=== PATIENT | male | born 1940 | race Caucasian/White ===

== ENCOUNTER 2016-02-22 09:55 | Outpatient (RCR) | payer MEDICARE ==
[~2016-02-22 09:55] MED LIST: ASP81CT PO; FISH OIL 1,2001 EAC1 PO; HYDR-3583 PO; HYDR500C PO; MULT1TAB63 PO
[2016-02-22 10:09] LABS: BASOPHILS % (AUTO) 0 % (0-10); EOSINOPHILS # (AUTO) 0.1 10^3/uL (0.0-0.3); EOSINOPHILS % (AUTO) 1 % (0-10); LYMPHOCYTES # (AUTO) 0.7 X 10^3 (1.0-4.0); LYMPHOCYTES % (AUTO) 10 % (12-44); MEAN CORPUSCULAR HEMOGLOBIN 41 PG (25-34); MEAN CORPUSCULAR HGB CONC 34 G/DL (32-36); MEAN CORPUSCULAR VOLUME 118 FL (80-99); MEAN PLATELET VOLUME 8.8 FL (7.4-10.4); MONOCYTES # (AUTO) 0.5 X 10^3 (0.0-1.0); MONOCYTES % (AUTO) 8 % (0-12); NEUTROPHILS # (AUTO) 5.4 X 10^3 (1.8-7.8); NEUTROPHILS % (AUTO) 81 % (42-75); PLATELET COUNT 322 10^3/uL (130-400); RED BLOOD COUNT 3.37 10^6/uL (4.35-5.85); RED CELL DISTRIBUTION WIDTH 12.8 % (10.0-14.5); WHITE BLOOD COUNT 6.6 10^3/uL (4.3-11.0)
[2016-02-22 10:40] LABS: ALANINE AMINOTRANSFERASE 16 U/L (0-55); ALBUMIN 3.7 G/DL (3.2-4.5); ANION GAP 8 MMOL/L (5-14); ASPARTATE AMINO TRANSFERASE 18 U/L (5-34); BILIRUBIN,TOTAL 0.7 MG/DL (0.1-1.0); BLOOD UREA NITROGEN 15 MG/DL (7-18); BUN/CREATININE RATIO 13; CALCIUM 8.8 MG/DL (8.5-10.1); CARBON DIOXIDE 24 MMOL/L (21-32); CHLORIDE 110 MMOL/L (98-107); CREATININE SERUM 1.14 MG/DL (0.60-1.30); GFR ESTIMATED > 60; GLUCOSE 104 MG/DL (70-105); LACTATE DEHYDROGENASE 224 U/L (125-220); POTASSIUM 4.3 MMOL/L (3.6-5.0); SODIUM 142 MMOL/L (135-145); TOTAL PROTEIN 6.6 G/DL (6.4-8.2)
[2016-05-04] MEDS ORDERED: METO-270 PO (06:42)
[2016-05-04] MEDS ORDERED: HYDR500C2 PO (10:45)
[2016-05-04] MEDS ORDERED: OMEG-9 PO (10:45)
== END 2016-05-22 | disposition home or self-care (01) ==
LOC: ONC 09:55
PROVIDERS: ATTEND Internal Medicine Hematology & Oncology
DX: D47.3 Essential (hemorrhagic) thrombocythemia (principal); I12.9 Hypertensive chronic kidney disease with stage 1 through stage 4 chronic kidney disease, or unspecified chronic kidney disease; N18.3 Chronic kidney disease, stage 3 (moderate); Z85.46 Personal history of malignant neoplasm of prostate; Z79.899 Other long term (current) drug therapy
CPT/HCPCS: 36415; 80053; 83615; 85025; 99213

== ENCOUNTER 2016-05-04 05:57 | Inpatient (IN) | payer MEDICARE ==
[~2016-05-04] VITALS: Ht 172.7 cm; Wt 70.3 kg
[2016-05-04] VITALS (7 sets, daily range): BP systolic 124–148; BP diastolic 67–79
[2016-05-04] MEDS ORDERED: ONDANSETRON 4 MG/2 ML (SDV) Z0FRAN ONE (06:06)
--- OUTSIDE RECORDS SUMMARY | 2016-05-04 06:06 | XMS REPORT | Continuity of Care Document ---
Author Author [facility] Address Unknown Phone Unavailable Allergies Active Description Code Type Severity Reaction Onset Reported/Identified Relationship to Patient Clinical Status Yes No Known Drug Allergies [id number] Drug Allergy Unknown N/ A 10/26/2009 Medications Problems Date Dx Coded Attending Type Code Diagnosis Diagnosed By 03/30/2014 ARACELIS BRUNER Ot 238.71 09/23/2014 SHERRELL HEADLEY CLERICAL TRANSCRIBER Ot 238.71 09/23/2014 SHERRELL HEADLEY CLERICAL TRANSCRIBER Ot 585.3 09/23/2014 SHERRELL HEADLEY CLERICAL TRANSCRIBER Ot V58.69 10/29/2014 OMER VELA, CY [place] Ot 780.2 SYNCOPE AND COLLAPSE 03/22/2015 SHERRELL HEADLEY CLERICAL TRANSCRIBER Ot D47.3 03/22/2015 SHERRELL HEADLEY CLERICAL TRANSCRIBER Ot N18.3 03/22/2015 SHERRELL HEADLEY CLERICAL TRANSCRIBER Ot Z79.899 08/30/2015 Ot 238.71 ESSENTIAL THROMBOCYTHEMIA 08/30/2015 Ot 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 08/30/2015 Ot V58.66 LONG-TERM (CURRENT) USE OF ASPIRIN 08/30/2015 Ot V58.69 OTH MED,LT,CURRENT USE 08/30/2015 Ot 238.71 ESSENTIAL THROMBOCYTHEMIA 08/30/2015 Ot 238.71 ESSENTIAL THROMBOCYTHEMIA 08/30/2015 Ot 401.9 HYPERTENSION NOS 08/30/2015 Ot 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 08/30/2015 Ot V58.66 LONG-TERM (CURRENT) USE OF ASPIRIN 08/30/2015 Ot V58.69 OTH MED,LT,CURRENT USE 08/30/2015 Ot 238.71 ESSENTIAL THROMBOCYTHEMIA 08/30/2015 Ot 401.9 HYPERTENSION NOS 08/30/2015 Ot 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 08/30/2015 Ot V58.66 LONG-TERM (CURRENT) USE OF ASPIRIN 08/30/2015 Ot V58.69 OTH MED,LT,CURRENT USE 08/30/2015 Ot 238.71 ESSENTIAL THROMBOCYTHEMIA 08/30/2015 Ot 401.9 HYPERTENSION NOS 08/30/2015 Ot V58.66 LONG-TERM (CURRENT) USE OF ASPIRIN 08/30/2015 Ot V58.69 OTH MED,LT,CURRENT USE 08/30/2015 Ot 238.71 ESSENTIAL THROMBOCYTHEMIA 08/30/2015 Ot 401.9 HYPERTENSION NOS 08/30/2015 Ot V58.66 LONG-TERM (CURRENT) USE OF ASPIRIN 08/30/2015 Ot V58.69 OTH MED,LT,CURRENT USE 08/30/2015 ZOHREH BOBAN N Ot 238.71 ESSENTIAL THROMBOCYTHEMIA 08/30/2015 ZOHREH, BOBAN N Ot 238.71 ESSENTIAL THROMBOCYTHEMIA 08/30/2015 ZOHREH BOBAN N Ot 401.9 HYPERTENSION NOS 08/30/2015 ZOHREH BOBAN N Ot V58.66 LONG-TERM (CURRENT) USE OF ASPIRIN 08/30/2015 JIMMY BRUNERAN N Ot V58.69 OTH MED,LT,CURRENT USE 08/30/2015 SHERRELL HEADLEY CLERICAL TRANSCRIBER Ot 238.71 ESSENTIAL THROMBOCYTHEMIA 08/30/2015 SHERRELL HEADLEY S CLERICAL TRANSCRIBER Ot 401.9 HYPERTENSION NOS 08/30/2015 SHERRELL HEADLEY CLERICAL TRANSCRIBER Ot V58.66 LONG-TERM (CURRENT) USE OF ASPIRIN 08/30/2015 SHERRELL HEADLEY CLERICAL TRANSCRIBER Ot V58.69 OTH MED,LT,CURRENT USE 08/30/2015 ZOHREH BOBAN N Ot 238.71 ESSENTIAL THROMBOCYTHEMIA 08/30/2015 ZOHREH BOBAN N Ot 401.9 HYPERTENSION NOS 08/30/2015 ZOHREH BOBAN N Ot V58.66 LONG-TERM (CURRENT) USE OF ASPIRIN 08/30/2015 ZOHREH BOBAN N Ot V58.69 OTH MED,LT,CURRENT USE 08/30/2015 ZOHREH BOBAN N Ot 238.71 ESSENTIAL THROMBOCYTHEMIA 08/30/2015 SHERRELL HEADLEY CLERICAL TRANSCRIBER Ot 238.71 ESSENTIAL THROMBOCYTHEMIA 08/30/2015 ZOHREH BOBAN N Ot 238.71 ESSENTIAL THROMBOCYTHEMIA 08/30/2015 ZOHREH BOBAN N Ot 238.71 ESSENTIAL THROMBOCYTHEMIA 08/30/2015 SHERRELL HEADLEY S CLERICAL TRANSCRIBER Ot 238.71 ESSENTIAL THROMBOCYTHEMIA 08/30/2015 SHERRELL HEADLEY CLERICAL TRANSCRIBER Ot 585.3 CHRONIC KIDNEY DISEASE, STAGE III ( MODER 08/30/2015 SHERRELL HEADLEY CLERICAL TRANSCRIBER Ot V58.69 OTH MED,LT,CURRENT USE 08/30/2015 SHERRELL HEADLEY CLERICAL TRANSCRIBER Ot D47.3 ESSENTIAL (HEMORRHAGIC) THROMBOCYTHEMIA 08/30/2015 SHERRELL HEADLEY CLERICAL TRANSCRIBER Ot N18.3 CHRONIC KIDNEY DISEASE, STAGE 3 ( MODERAT 08/30/2015 SHERRELL HEADLEY CLERICAL TRANSCRIBER Ot Z79.899 OTHER PHP ENGINEER (CURRENT) DRUG THERAPY 08/31/2015 ZOHREH, BOBAN N Ot D47.3 ESSENTIAL (HEMORRHAGIC) THROMBOCYTHEMIA 08/31/2015 ZOHREH, BOBAN N Ot N18.3 CHRONIC KIDNEY DISEASE, STAGE 3 (MODERAT 08/31/2015 ZOHREH, BOBAN N Ot Z79.899 OTHER HALF-WAY (CURRENT) DRUG THERAPY 09/30/2015 ZOHREH, BOBAN N Ot D47.3 ESSENTIAL (HEMORRHAGIC) THROMBOCYTHEMIA 09/30/2015 ZOHREH, BOBAN N Ot N18.3 CHRONIC KIDNEY DISEASE, STAGE 3 (MODERAT 09/30/2015 ZOHREH, BOBAN N Ot Z79.899 OTHER HALF-WAY (CURRENT) DRUG THERAPY 04/11/2016 ZOHREH, BOBAN N Ot D47.3 ESSENTIAL (HEMORRHAGIC) THROMBOCYTHEMIA 04/11/2016 ZOHREH, BOBAN N Ot I12.9 HYPERTENSIVE CHRONIC KIDNEY DISEASE W ST 04/11/2016 ZOHREH, BOBAN N Ot N18.3 CHRONIC KIDNEY DISEASE, STAGE 3 (MODERAT 04/11/2016 ZOHREH, BOBAN N Ot Z79.899 OTHER HALF-WAY (CURRENT) DRUG THERAPY 04/11/2016 ZOHREH, BOBAN N Ot Z85.46 PERSONAL HISTORY OF MALIGNANT NEOPLASM O 04/24/2016 ZOHREH, BOBAN N Ot D47.3 ESSENTIAL (HEMORRHAGIC) THROMBOCYTHEMIA 04/24/2016 ZOHREH, BOBAN N Ot I12.9 HYPERTENSIVE CHRONIC KIDNEY DISEASE W ST 04/24/2016 ZOHREH, BOBAN N Ot N18.3 CHRONIC KIDNEY DISEASE, STAGE 3 (MODERAT 04/24/2016 ZOHREH, BOBAN N Ot Z79.899 OTHER HALF-WAY (CURRENT) DRUG THERAPY 04/24/2016 ZOHREH, BOBAN N Ot Z85.46 PERSONAL HISTORY OF MALIGNANT NEOPLASM O Procedures Results Encounters ACCT No. Visit Date/Time Discharge Status Pt. Type Provider Facility Loc./Unit Complaint [id number] 12/04/2013 12:48:35 12/04/2013 23: 59:59 [facility] Outpatient Jerrod Fermin [id number] 11/13/2013 15:32:28 11/13/2013 23: 59:59 [facility] Outpatient Jerrod Fermin
[2016-05-04] MEDS ORDERED: NS IV 1000 ML 1,000 ML IV STA (06:08)
[2016-05-04] MEDS ORDERED: ONDANSETRON 4 MG/2 ML (SDV) Z0FRAN IVP ONE ×2 (06:15→06:30)
[2016-05-04 06:18] LABS: BASOPHILS % (AUTO) 1 % (0-10); EOSINOPHILS # (AUTO) 0.1 10^3/uL (0.0-0.3); EOSINOPHILS % (AUTO) 1 % (0-10); LYMPHOCYTES # (AUTO) 2.2 X 10^3 (1.0-4.0); LYMPHOCYTES % (AUTO) 28 % (12-44); MEAN CORPUSCULAR HEMOGLOBIN 42 PG (25-34); MEAN CORPUSCULAR HGB CONC 36 G/DL (32-36); MEAN CORPUSCULAR VOLUME 118 FL (80-99); MEAN PLATELET VOLUME 9.6 FL (7.4-10.4); MONOCYTES # (AUTO) 0.8 X 10^3 (0.0-1.0); MONOCYTES % (AUTO) 11 % (0-12); NEUTROPHILS # (AUTO) 4.9 X 10^3 (1.8-7.8); NEUTROPHILS % (AUTO) 61 % (42-75); PLATELET COUNT 318 10^3/uL (130-400); RED BLOOD COUNT 3.29 10^6/uL (4.35-5.85); RED CELL DISTRIBUTION WIDTH 12.9 % (10.0-14.5)
--- NOTE | 2016-05-04 06:19 | ED CPR ---
HPI-CPR General Stated Complaint: POST CODE Source of Information: Patient, Caregiver, Family Exam Limitations: Physical Impairments (LINETTE ARTIS MD) History of Present Illness Time Seen by Provider: 05:45 Initial Comments Called emergently to the fourth floor room 415 for cardiac arrest. On arrival, found family member of patient on floor with resuscitation in progress. Apparently the patient went unresponsive and had no pulse and CPR was initiated. Patient was guided to the ground and did not hit his head. Apparently after on round of CPR, patient was noted to have a pulse. He was bradycardic on my arrival but was answering questions weakly. Patient's states that he has had history of passing out previously. He has some blood disorder that is followed by oncology. Patient denies pain. Patient is pale and diaphoretic. Initial heart rate noted by me was in the 30s and declining. This spontaneously improved to the 40s and then 50s. Patient was on high flow O2 and IV was established. Patient transported to ER [facility] and then transported to the ER with me at bedside. Patient is connected to the monitoring manager. We did have a 3-4 minute time period that the patient was paced electronically externally. On arrival to the ER, patient is more responsive with better color and improving blood pressure. Family member at bedside. Initial Complaints: Collapsed Witnessed Arrest: Yes Bystander CPR: Yes Down-Time Before ACLS: 0 Paramedics Initial Findings: No Pulse Pre Hospital Treatment: CPR/Thumper, Oxygen (LINETTE ARTIS MD) Allergies and Home Medications Allergies Coded Allergies: No Known Drug Allergies (Unverified , 10/26/09) Home Medications Aspirin 81 Mg Tablet 81 MG PO DAILY (Reported) Hydroxyurea 500 Mg Capsule 500 MG PO SuTuWeThSa (Reported) Hydroxyurea 500 Mg Capsule 500 MG PO DAILY PRN PRN MOFR (Reported) Metoprolol Succinate 25 Mg Tab.er.24h 25 MG PO DAILY (Reported) Multivitamins 1 Ea Tablet 1 TAB PO DAILY (Reported) [place]-3/Dha/Epa/Fish Oil 1 Each Capsule.dr 1,400 MG PO DAILY (Reported) Review of Systems Constitutional: see HPI chills Respiratory: See HPI Cardiovascular: See HPI Gastrointestinal: NauseaDenies Vomiting Skin: see HPI Psychiatric/Neurological: Weakness Other Comments Unable to complete review of systems due to patient's condition (LINETTE ARTIS MD) Past Byqyqwc-Wcdalx-Lomsyt Hx Patient Social History Alcohol Use: Denies Use Recreational Drug Use: No Smoking Status: Unknown if Ever Smoked Recent Foreign Travel: No Contact w/Someone Who Travel: No (LINETTE ARTIS MD) Surgeries HX Surgeries: Yes (prostatectomy) (LINETTE ARTIS MD) Respiratory Hx Respiratory Disorders: No (LINETTE ARTIS MD) Cardiovascular Hx Cardiac Disorders: No (LINETTE ARTIS MD) Neurological Hx Neurological Disorders: No (LINETTE ARTIS MD) Reproductive System Hx Reproductive Disorders: No (LINETTE ARTIS MD) Genitourinary Hx Genitourinary Disorders: Yes (LINETTE ARTIS MD) Gastrointestinal Hx Gastrointestinal Disorders: No (LINETTE ARTIS MD) Musculoskeletal Hx Musculoskeletal Disorders: No (LINETTE ARTIS MD) Endocrine Hx Endocrine Disorders: No (LINETTE ARTIS MD) HEENT HX ENT Disorders: No (LINETTE ARTIS MD) Psychosocial Hx Psychiatric Problems: No (LINETTE ARTIS MD) Blood Transfusions Hx Blood Disorders: Yes (THROMBOCYTHEMIA) (LINETTE ARTIS MD) Reviewed Nursing Assessment Reviewed/Agree w Nursing PMH: Yes (LINETTE ARTIS MD) Family Medical History Significant Family History: No Pertinent Family Hx (LINETTE ARTIS MD) Physical Exam Vital Signs Vital Sign - Last 12Hours (BEVERLEY SORIA MD) Vital Signs Capillary Refill : (LINETTE ARTIS MD) General Appearance: Moderate Distress Thin HEENT: PERRL/EOMI Pharynx Normal Neck: Full Range of Motion Supple Respiratory: Lungs Clear Normal Breath Sounds Cardiovascular: No Murmur Bradycardia Gastrointestinal: Non Tender Soft Extremity: Non Tender No Calf Tenderness Neurologic/Psychiatric: Depressed Affect Other (global weakness) Skin: Cool Pallor (LINETTE ARTIS MD) Focused Exam Lactic Acid Level Laboratory Tests Test 05/04/16 06:04 05/04/16 06:10 Alanine Aminotransferase (ALT/SGPT) 16U/L (0-55) Albumin 3.7G/DL (3.2-4.5) Alkaline Phosphatase 60U/L (40-136) Amylase Level 82U/L (25-125) Anion Gap 10MMOL/L (5-14) Aspartate Amino Transf (AST/SGOT) 20U/L (5-34) BUN/Creatinine Ratio 15 Blood Urea Nitrogen 20MG/DL (7-18) H Calcium Level 8.3MG/DL (8.5-10.1) L Carbon Dioxide Level 20MMOL/L (21-32) L Chloride Level 109MMOL/L (98-107) H Creatinine 1.37MG/DL (0.60-1.30) H Estimat Glomerular Filtration Rate 50 Glucose Level 134MG/DL (70-105) H Lactic Acid Level 1.45MMOL/L (0.50-2.00) Lipase 17U/L (8-78) Magnesium Level 2.2MG/DL (1.8-2.4) Potassium Level 3.4MMOL/L (3.6-5.0) L Sodium Level 139MMOL/L (135-145) Total Bilirubin 1.4MG/DL (0.1-1.0) H Total Protein 6.0G/DL (6.4-8.2) L Troponin I < 0.30NG/ML (<0.30) Glucometer 88MG/DL (70-110) (BEVERLEY SORIA MD) Progress/Results/Core Measures Results/Orders Lab Results Laboratory Tests Test 05/04/16 06:04 05/04/16 06:10 05/04/16 06:16 05/04/16 07:00 Range/Units Activated Partial Thromboplast Time 27 24-35 SEC Alanine Aminotransferase (ALT/SGPT) 16 0-55 U/L Albumin 3.7 3.2-4.5 G/DL Alkaline Phosphatase 60 40-136 U/L Amylase Level 82 25-125 U/L Anion Gap 10 5-14 MMOL/L Aspartate Amino Transf (AST/SGOT) 20 5-34 U/L BUN/Creatinine Ratio 15 Basophils # (Auto) 0.0 0.0-0.1 10^3/uL Basophils (%) (Auto) 1 0-10 % Blood Urea Nitrogen 20 H 7-18 MG/DL Calcium Level 8.3 L 8.5-10.1 MG/DL Carbon Dioxide Level 20 L 21-32 MMOL/L Chloride Level 109 H 98-107 MMOL/L Creatinine 1.37 H 0.60-1.30 MG/DL Eosinophils # (Auto) 0.1 0.0-0.3 10^3/uL Eosinophils (%) (Auto) 1 0-10 % Estimat Glomerular Filtration Rate 50 Glucose Level 134 H 70-105 MG/DL Hematocrit 39 L 40-54 % Hemoglobin 13.8 13.3-17.7 G/DL INR Comment 1.1 0.8-1.4 Lactic Acid Level 1.45 0.50-2.00 MMOL/L Lipase 17 8-78 U/L Lymphocytes # (Auto) 2.2 1.0-4.0 X 10^3 Lymphocytes (%) (Auto) 28 12-44 % Magnesium Level 2.2 1.8-2.4 MG/DL Mean Corpuscular Hemoglobin 42 H 25-34 PG Mean Corpuscular Hemoglobin Concent 36 32-36 G/DL Mean Corpuscular Volume 118 H 80-99 FL Mean Platelet Volume 9.6 7.4-10.4 FL Monocytes # (Auto) 0.8 0.0-1.0 X 10^3 Monocytes (%) (Auto) 11 0-12 % Neutrophils # (Auto) 4.9 1.8-7.8 X 10^3 Neutrophils (%) (Auto) 61 42-75 % Platelet Count 318 130-400 10^3/uL Potassium Level 3.4 L 3.6-5.0 MMOL/L Prothrombin Time 14.3 12.2-14.7 SEC Red Blood Count 3.29 L 4.35-5.85 10^6/uL Red Cell Distribution Width 12.9 10.0-14.5 % Sodium Level 139 135-145 MMOL/L Total Bilirubin 1.4 H 0.1-1.0 MG/DL Total Protein 6.0 L 6.4-8.2 G/DL Troponin I < 0.30 <0.30 NG/ML White Blood Count 8.0 4.3-11.0 10^3/uL Glucometer 88 70-110 MG/DL Tan Test YES-POS POSITIVE Arterial Blood Base Excess 1.7 -2.9 L -2.5-2.5 MMOL/L Arterial Blood HCO3 23 21 L 23-27 MMOL/L Arterial Blood Oxygen Saturation 100 97 94-100 % Arterial Blood Partial Pressure CO2 22 L 35 35-45 MMHG Arterial Blood Partial Pressure O2 120 H 73 L 79-93 MMHG Arterial Blood Total CO2 24.1 22.6 21.0-31.0 MMOL/L Arterial Blood pH 7.62 *H 7.40 7.37-7.43 Blood Gas Inspired Oxygen 4L OXIMASK N/A Blood Gas Patient Temperature 96.4 96.6 Blood Gas Puncture Site RT RADIAL LEFT RADIAL Blood Gas Ventilator Setting NO NO (BEVERLEY SORIA MD) My Orders Orders-BEVERLEY SORIA MD Ondansetron Injection (Zofran Injectio (05/04/16 06:30) Arterial Blood Gas (05/04/16 06:44) Ua Culture If Indicated (05/04/16 06:44) (BEVERLEY SORIA MD) Medications Given in ED (BEVERLEY SORIA MD) Vital Signs/I&O Vital Sign - Last 12Hours 05/04/16 05/04/16 05:57 05:57 Temp 96.4 Pulse 70 Resp 16 16 B/P 110/60 Pulse Ox 99 O2 Delivery OxyMask OxyMask O2 Flow Rate 14 14 (BEVERLEY SORIA MD) Progress Note : Progress Note Responded as per history of present illness. On arrival to ER, patient connected to monitors, oxygen and IV normal saline 1 L bolus initiated. Post code labs ordered. Chest x-ray and EKG ordered. Patient received Zofran 4 mg IV for nausea. Patient much improved and has better color now. Care transferred to Dr. Estes at 0620. (LINETTE ARTIS MD) Progress Note : Time: 07:14 Progress Note Patient has been stable since I assumed care. He denies any complaints at this time other than feeling tired. He denies any chest pain or shortness of air. Fingerstick blood sugar was checked and was 88. Patient received 2 doses of Zofran for nausea and vomiting. Case has been reviewed with Dr. Eaton and agrees to admission to the ICU with a cardiology consult. Additional history was obtained from the patient's . She reports the family has all been present at the hospital for several days due to a very ill family member. Patient has not been eating or drinking well during that time and has been very stressed. He was sitting in a chair this morning when he jerked back and became cyanotic. At this point a CODE BLUE was called. See Dr. Artis note for further details. (BEVERLEY SORIA MD) ECG Initial ECG Impression Date: May 04, 2016 Initial ECG Impression Time: 06:02 Initial ECG Rate: 67 Initial ECG Rhythm: Normal Sinus Comment Sinus rhythm with right bundle branch block. No evidence of ST elevation TN. Change from previous of 10/26/2009 which was normal sinus rhythm. Interpreted by me. (LINETTE ARTIS MD) Diagnostic Imaging Diagonstic Imaging: Xray Plain Films/CT/US/NM/MRI: chest Comments Mild bilateral vascular congestion Reviewed: Reviewed by Me (LINETTE ARTIS MD) Comments NAME: MIQUEL STRAUSS [facility] REC#: [id number] PT STATUS: REG ER : 1940 PHYSICIAN: LINETTE ARTIS MD ADMIT DATE: 05/04/16/ER Draft Date of Exam:05/04/16 CHEST 1 VIEW, AP/PA ONLY CLINICAL INDICATION: Patient is status post code, patient is responsive at time of exam. EXAM: Portable chest x-ray upright view. COMPARISONS: Chest x-ray dated 10/26/2009. FINDINGS: There is mild increased curvilinear opacities in both lungs which may represent mild atelectasis. Otherwise, lungs are clear. There is no pleural effusion or pneumothorax. There may be mild pulmonary vascular congestion. Cardiac silhouette is within normal limits. Mild thoracic spine degenerative disease is seen. Bones show no significant interval abnormality. IMPRESSION: 1: There is mild bilateral lung atelectasis and possible mild pulmonary vascular congestion. 2: Otherwise remainder of the exam is unremarkable. Dictated on workstation # [id number] Dict: 05/04/16 0646 Trans: 05/04/16 0650 [id number] Interpreted by: KRISTIN QUINTEROS MD (BEVERLEY SORIA MD) Departure Communication Time/Spoke to Admitting Phy: 06:[address] Eaton Time/Spoke to Consulting Physi: 07:18 Communication/Consulting Dr. Herring (BEVERLEY SORIA MD) Impression Impression: Primary Impression: Sudden cardiac arrest Additional Impressions: Bradycardia Hypokalemia Acute renal insufficiency Disposition: 09 ADMITTED INPATIENT Condition: Critical Decision to Admit Reason: Admit from ER (General) Decision to Admit/Date: May 04, 2016 Time/Decision to Admit Time: 06:25 (LINETTE ARTIS MD) Departure-Patient Inst. Referrals: CLARITZA ZHU MD (PCP/Family) Primary Care Physician LINETTE ARTIS MD May 04, 2016 06:19 BEVERLEY SORIA MD May 04, 2016 06:56
[2016-05-04 06:27] LABS: ABG BASE EXCESS 1.7 MMOL/L (-2.5-2.5); ABG HCO3 23 MMOL/L (23-27); ABG OXYGEN SATURATION 100 % (94-100); ABG PCO2 22 MMHG (35-45); ABG PO2 120 MMHG (79-93); ABG TCO2 24.1 MMOL/L (21.0-31.0)
[2016-05-04 06:30] LABS: ABG PH 7.62 (7.37-7.43); ALLENS TEST YES-POS
[2016-05-04 06:31] LABS: PATIENT TEMP 96.4
[2016-05-04 06:37] LABS: ALANINE AMINOTRANSFERASE 16 U/L (0-55); ALBUMIN 3.7 G/DL (3.2-4.5); AMYLASE 82 U/L (25-125); ANION GAP 10 MMOL/L (5-14); ASPARTATE AMINO TRANSFERASE 20 U/L (5-34); BILIRUBIN,TOTAL 1.4 MG/DL (0.1-1.0); BLOOD UREA NITROGEN 20 MG/DL (7-18); BUN/CREATININE RATIO 15; CALCIUM 8.3 MG/DL (8.5-10.1); CARBON DIOXIDE 20 MMOL/L (21-32); CHLORIDE 109 MMOL/L (98-107); CREATININE SERUM 1.37 MG/DL (0.60-1.30); GFR ESTIMATED 50; GLUCOSE 134 MG/DL (70-105); LIPASE 17 U/L (8-78); MAGNESIUM 2.2 MG/DL (1.8-2.4); POTASSIUM 3.4 MMOL/L (3.6-5.0); SODIUM 139 MMOL/L (135-145)
[2016-05-04 06:42] LABS: TROPONIN I < 0.30 NG/ML (<0.30)
[2016-05-04] MEDS ORDERED: METO-270 PO (06:42)
[2016-05-04 06:46] LABS: INR 1.1 (0.8-1.4); PROTHROMBIN TIME PATIENT 14.3 SEC (12.2-14.7)
--- NOTE | 2016-05-04 06:50 | Diagnostic Imaging Report ---
CLINICAL INDICATION: Patient is status post code, patient is responsive at time of exam. EXAM: Portable chest x-ray upright view. COMPARISONS: Chest x-ray dated 10/26/2009. FINDINGS: There is mild increased curvilinear opacities in both lungs which may represent mild atelectasis. Otherwise, lungs are clear. There is no pleural effusion or pneumothorax. There may be mild pulmonary vascular congestion. Cardiac silhouette is within normal limits. Mild thoracic spine degenerative disease is seen. Bones show no significant interval abnormality. IMPRESSION: 1: There is mild bilateral lung atelectasis and possible mild pulmonary vascular congestion. 2: Otherwise remainder of the exam is unremarkable. Dictated by: Dictated on workstation # [id number]
[2016-05-04 07:16] LABS: ABG BASE EXCESS -2.9 MMOL/L (-2.5-2.5); ABG HCO3 21 MMOL/L (23-27); ABG OXYGEN SATURATION 97 % (94-100); ABG PCO2 35 MMHG (35-45); ABG PO2 73 MMHG (79-93); ABG TCO2 22.6 MMOL/L (21.0-31.0)
[2016-05-04 07:17] LABS: ALLENS TEST POSITIVE; PATIENT TEMP 96.6
[2016-05-04] MEDS ORDERED: NS 1000 ML IV BAG IV ONE (08:24)
[2016-05-04] MEDS ORDERED: ATROPINE INJECTION 1 MG/10 ML SYR (ABBOTT) INJ ONE (08:24)
[2016-05-04] MEDS ORDERED: ONDANSETRON 4 MG/2 ML (SDV) Z0FRAN IVP PRN (08:30)
[2016-05-04] MEDS ORDERED: D5 1/2 NS W/KCL 20 MEQ/L 1,000 ML IV SCH (08:30)
--- NOTE | 2016-05-04 10:33 | Short Stay Summary-Hospitalist ---
HPI History of Present Illness: HPI/Chief Complaint CC: Syncope s/p cardiac arrest HPI: This is a 75[address]WM pt of Dr. Padron's with past hx of prostate CA and skin CA under Dr. Kowalski care that was upstairs visiting his daughter who has colon CA on hospice and had a syncopal episode with loss of pulse and CPR was started. Upon further evaluation it appears that dehydration with volume depletion played a part with vasovagal syncope and Dr. Herring has been consulted and conferred with. Creat on admission was 1.37, has been given adequate fluids and being closely monitored in ICU. Chart Review: WBC 8 Platelets 318 MCV 118 ABG repeat 7.40/35/73 K+ 3.4 Lactic acid normal CXR negative. Patient Interview: Pt states that he feels good currently. Pt confirms that he was dehydrated yesterday. Pt wishes to DC today, and does not want to stay overnight. Pt insists that he return to home this afternoon. Pt confirms that Dr. Padron is PCP. Physical exam stable. Scribed by Peña Barragan under the direct supervision of Dr. Johnson. Source: patient Exam Limitations: no limitations Date Seen 05/04/16 Attending Physician Gabbi Johnson DO PCP Kael Padron MD Referring Physician Date of Admission May 04, 2016 at 07:27 Home Medications & Allergies Home Medications Reviewed patient Home Medication Reconciliation Form Allergies Coded Allergies: No Known Drug Allergies (Unverified , 10/26/09) Past Tioduuu-Owkueg-Uqprci Hx Patient Social History Marrital Status: Employed/Student: retired Alcohol Use: Denies Use Recreational Drug Use: No Smoking Status: Never a Smoker Recent Foreign Travel: No Contact w/other who traveled: No Recent Hopitalizations: No Recent Infectious Disease Expo: No Immunizations Up To Date Date of Influenza Vaccine: Nov 20, 2015 Seasonal Allergies Seasonal Allergies: No Surgeries HX Surgeries: Yes (prostatectomy) Respiratory Hx Respiratory Disorders: No Cardiovascular Hx Cardiovascular Disorders: No Neurological Hx Neurological Disorders: No Reproductive System Hx Reproductive Disorders: No Genitourinary Hx Genitourinary Disorders: Yes Genitourinary Disorders: Prostate Problems Gastrointestinal Hx Gastrointestinal Disorders: No Musculoskeletal Hx Musculoskeletal Disorders: No Endocrine Hx Endocrine Disorders: No HEENT HX ENT Disorders: No Cancer Hx Cancer: Yes Cancer: Prostate, Skin Psychosocial Hx Psychiatric Problems: No Integumentary HX Skin/Integumentary Disorder: No Blood Transfusions Hx Blood Disorders: Yes (thrombocytopenia) Reviewed Nursing Assessment Reviewed/Agree w Nursing PMH: Yes Family Medical History Significant Family History: No Pertinent Family Hx Review of Systems Constitutional: see HPI dizziness weakness weight loss EENTM: no symptoms reported Respiratory: no symptoms reported Cardiovascular: no symptoms reported Gastrointestinal: loss of appetite Genitourinary: no symptoms reported Musculoskeletal: no symptoms reported Skin: no symptoms reported Psychiatric/Neurological: No Symptoms Reported All Other Systems Reviewed Negative Unless Noted: Yes Physical Exam Physical Exam Vital Signs Vital Sign - Last 12Hours Capillary Refill : Less Than 3 Seconds General Appearance: No Apparent Distress WD/WN Chronically ill Thin Eyes: Bilateral Eye Normal Inspection, Bilateral Eye PERRL HEENT: PERRL/EOMI Normal ENT Inspection Pharynx Normal Neck: Full Range of Motion Normal Inspection Non Tender Supple Carotid Bruit Respiratory: Chest Non Tender Lungs Clear Normal Breath Sounds No Accessory Muscle Use No Respiratory Distress Cardiovascular: Regular Rate, Rhythm No Edema No Gallop No JVD No Murmur Normal Peripheral Pulses Gastrointestinal: Normal Bowel Sounds No Organomegaly No Pulsatile Mass Non Tender Soft Back: Normal Inspection No CVA Tenderness No Vertebral Tenderness Extremity: Normal Capillary Refill Normal Inspection Normal Range of Motion Non Tender No Calf Tenderness No Pedal Edema Neurologic/Psychiatric: Alert Oriented x3 No Motor/Sensory Deficits Normal Mood/Affect Skin: Normal Color Warm/Dry Lymphatic: No Adenopathy Results Results/Procedures Lab Laboratory Tests 05/04/16 06:04 Short Stay Diagnosis Discharge Diagnosis-Short Stay Admission Diagnosis Assessment: Vasovagal syncope with hypotension status post 2 minutes of CPR performed on fourth floor via [facility] while he was visiting his daughter on hospice Severe emotional stressors History of prostate cancer managed by Dr. Gomez History of skin cancer Final Discharge Diagnosis Assessment: Vasovagal syncope with hypotension status post 2 minutes of CPR performed on fourth floor via [facility] while he was visiting his daughter on hospice Severe emotional stressors History of prostate cancer managed by Dr. Gomez History of skin cancer Conclusion Plan Plan: Cardiac evaluation with Dr. Herring. JOSE this afternoon. Maintain IVF in meantime GABBI JOHNSON DO May 04, 2016 10:33
--- NOTE | 2016-05-04 10:38 | Diagnostic Imaging Report ---
PROCEDURE: US Carotid Duplex Bilateral. TECHNIQUE: Multiple real-time grayscale images were obtained over the carotid arteries in various projections bilaterally. Additional duplex Doppler and color Doppler images were also obtained. INDICATION: Syncopal episode. FINDINGS: Grayscale images demonstrate bilateral mild atherosclerotic plaque of the proximal ICA bilaterally. Color Doppler demonstrates patency of the internal, external, and common carotid arteries bilaterally. The vertebral arteries demonstrate antegrade flow bilaterally. There is decreased amplitude of the systolic beat and increased resistance waveform in the left vertebral artery. The ICA velocities from proximal/distal on the right side are 138, 154, and 125 cm/s, and on the left 89, 108, and 104 cm/s. ICA/CCA ratios are up to 0.8 on the right and 0.7 on the left. IMPRESSION: 1. Mild atherosclerotic plaque in the proximal internal carotid arteries bilaterally with no evidence of high-grade stenosis. 2. Increased resistance waveform in the left vertebral artery may relate to distal left vertebral artery stenosis. This can be better evaluated with CT angiogram of the neck and head if needed. Dictated by: Dictated on workstation # [id number]
[2016-05-04] MEDS ORDERED: HYDR500C2 PO (10:45)
[2016-05-04] MEDS ORDERED: OMEG-9 PO (10:45)
[2016-05-04] MEDS ORDERED: HYDROXYUREA 500 MG CAP (HYDREA) PO PRN (11:30)
[2016-05-04] MEDS: HYDROXYUREA 500 MG CAP (HYDREA) PO SCH ×2 (13:00→13:54)
[2016-05-04] MEDS ORDERED: CATHETER FLUSH 10 ML SYR IV PRN (14:30)
--- NOTE | 2016-05-04 15:04 | Consultation-Cardiology ---
HPI-Cardiology Cardiology Consultation Date of Consultation 05/04/16 Date of Admission Indication: Syncope HPI Patient was visiting his daughter who has colorectal cancer on hospice has been not eating or drinking well. Last 2 days sitting at her bedside, had a syncopal episode, pulse was not palpable, CPR was initiated. He was ready cardiac. Regain consciousness without intubation. Patient had history of syncope occurred twice in the past. He denied any chest pain or shortness of breath. He is demanding to be discharged as soon as possible to be with his daughter. Home Medications & Allergies Allergies: Coded Allergies: No Known Drug Allergies (Unverified , 10/26/09) Home Medication List Reviewed: Yes [facility] Hx Patient Social History Marital Status: Employed/Student: retired Alcohol Use: Denies Use Recreational Drug Use: No Smoking Status: Never a Smoker Recent Foreign Travel: No Recent Infectious Disease Expo: No Recent Hopitalizations: No Physical Abuse Screen: No Sexual Abuse: No Immunizations Up To Date Date of Influenza Vaccine: Nov 20, 2015 Past Medical History Past medical history as discussed Family Medical History Significant Family History: No Pertinent Family Hx Family Medical Hx Noncontributory Constitutional: No no symptoms reported, see HPINo chills, No diaphoresis, No dizziness, No fever, malaise weaknessNo weight gain, No weight loss, No other EENTM: no symptoms reported see HPI Respiratory: no symptoms reported see HPI Cardiovascular: see HPINo chest pain, No edema, No Hx of Intervention, No palpitations, syncopeNo vascular heart diseas, No other Gastrointestinal: see HPI Genitourinary: no symptoms reported see HPI Musculoskeletal: no symptoms reported see HPI Skin: see HPI Psychiatric/Neurological: No Symptoms Reported See HPI Reviewed Test Results Reviewed Test Results Lab Laboratory Tests Test 05/04/16 06:04 05/04/16 06:10 05/04/16 06:16 05/04/16 07:00 Range/Units Activated Partial Thromboplast Time 27 24-35 SEC Alanine Aminotransferase (ALT/SGPT) 16 0-55 U/L Albumin 3.7 3.2-4.5 G/DL Alkaline Phosphatase 60 40-136 U/L Amylase Level 82 25-125 U/L Anion Gap 10 5-14 MMOL/L Aspartate Amino Transf (AST/SGOT) 20 5-34 U/L BUN/Creatinine Ratio 15 Basophils # (Auto) 0.0 0.0-0.1 10^3/uL Basophils (%) (Auto) 1 0-10 % Blood Urea Nitrogen 20 H 7-18 MG/DL Calcium Level 8.3 L 8.5-10.1 MG/DL Carbon Dioxide Level 20 L 21-32 MMOL/L Chloride Level 109 H 98-107 MMOL/L Creatinine 1.37 H 0.60-1.30 MG/DL Eosinophils # (Auto) 0.1 0.0-0.3 10^3/uL Eosinophils (%) (Auto) 1 0-10 % Estimat Glomerular Filtration Rate 50 Glucose Level 134 H 70-105 MG/DL Hematocrit 39 L 40-54 % Hemoglobin 13.8 13.3-17.7 G/DL INR Comment 1.1 0.8-1.4 Lactic Acid Level 1.45 0.50-2.00 MMOL/L Lipase 17 8-78 U/L Lymphocytes # (Auto) 2.2 1.0-4.0 X 10^3 Lymphocytes (%) (Auto) 28 12-44 % Magnesium Level 2.2 1.8-2.4 MG/DL Mean Corpuscular Hemoglobin 42 H 25-34 PG Mean Corpuscular Hemoglobin Concent 36 32-36 G/DL Mean Corpuscular Volume 118 H 80-99 FL Mean Platelet Volume 9.6 7.4-10.4 FL Monocytes # (Auto) 0.8 0.0-1.0 X 10^3 Monocytes (%) (Auto) 11 0-12 % Neutrophils # (Auto) 4.9 1.8-7.8 X 10^3 Neutrophils (%) (Auto) 61 42-75 % Platelet Count 318 130-400 10^3/uL Potassium Level 3.4 L 3.6-5.0 MMOL/L Prothrombin Time 14.3 12.2-14.7 SEC Red Blood Count 3.29 L 4.35-5.85 10^6/uL Red Cell Distribution Width 12.9 10.0-14.5 % Sodium Level 139 135-145 MMOL/L Total Bilirubin 1.4 H 0.1-1.0 MG/DL Total Protein 6.0 L 6.4-8.2 G/DL Troponin I < 0.30 <0.30 NG/ML White Blood Count 8.0 4.3-11.0 10^3/uL Glucometer 88 70-110 MG/DL Tan Test YES-POS POSITIVE Arterial Blood Base Excess 1.7 -2.9 L -2.5-2.5 MMOL/L Arterial Blood HCO3 23 21 L 23-27 MMOL/L Arterial Blood Oxygen Saturation 100 97 94-100 % Arterial Blood Partial Pressure CO2 22 L 35 35-45 MMHG Arterial Blood Partial Pressure O2 120 H 73 L 79-93 MMHG Arterial Blood Total CO2 24.1 22.6 21.0-31.0 MMOL/L Arterial Blood pH 7.62 *H 7.40 7.37-7.43 Blood Gas Inspired Oxygen 4L OXIMASK N/A Blood Gas Patient Temperature 96.4 96.6 Blood Gas Puncture Site RT RADIAL LEFT RADIAL Blood Gas Ventilator Setting NO NO Test 05/04/16 10:14 Range/Units Troponin I < 0.30 <0.30 NG/ML Physical Exam Vital Signs Vital Sign - Last 12Hours Capillary Refill : Less Than 3 Seconds General Appearance: No Apparent Distress WD/WN Eyes: Bilateral Eye EOMI, Bilateral Eye Normal Inspection, Bilateral Eye PERRL HEENT: PERRL/EOMI TMs Normal Normal ENT Inspection Pharynx Normal Neck: Full Range of Motion Normal Inspection Non Tender Supple Carotid Bruit Respiratory: Chest Non Tender Lungs Clear Normal Breath Sounds No Accessory Muscle Use No Respiratory Distress Cardiovascular: Regular Rate, Rhythm No Edema No Gallop No JVD No Murmur Normal Peripheral Pulses Gastrointestinal: Normal Bowel Sounds No Organomegaly No Pulsatile Mass Non Tender Soft Back: Normal Inspection No CVA Tenderness No Vertebral Tenderness Extremity: Normal Capillary Refill Normal Inspection Normal Range of Motion Non Tender No Calf Tenderness No Pedal Edema Neurologic/Psychiatric: Alert Oriented x3 No Motor/Sensory Deficits Normal Mood/Affect Skin: Normal Color Warm/Dry Lymphatic: No Adenopathy A/P-Cardiology Admission Diagnosis Syncope Carotid stenosis Hypertension Acute renal insufficiency Assessment/Plan Syncope, probably vasovagal in type with dehydration. Currently better. Echocardiogram showed normal LV size and function, pulmonary hypertension, valvular heart disease. 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 Hypertension by history, maintained on beta blockers, currently blood pressure is controlled. Dehydration, acute renal insufficiency. Receiving IV fluid. History of prostate cancer and skin cancer followed by Dr. Louis Electrolytes abnormality. Managed by primary care physician From cardiology standpoint, I feel that his syncopal episode is vasovagal on top of dehydration. I recommend monitoring him as an outpatient, will consider stress test as an outpatient. Received IV fluid at this time. He is discharged home and follow-up as an outpatient. Clinical Quality Measures DVT/VTE Risk/Contraindication: Risk Factor Score Per Nursin RFS Level Per Nursing on Admit: 2=Moderate VIVIENNE RANDOLPH MD May 04, 2016 15:04
--- NOTE | 2016-05-05 07:07 | ECHOCARDIOGRAPHY REPORT ---
PROCEDURE PHYSICIAN: VIVIENNE RANDOLPH DATE OF PROCEDURE: 05/04/2016 TWO DIMENSIONAL ECHOCARDIOGRAM REPORT PRIMARY PHYSICIAN: OTHER PHYSICIAN: REFERRING PHYSICIAN: ORDERING PHYSICIAN: INDICATION FOR THE PROCEDURE: Syncope MEASUREMENTS DERIVED VALUES LV DIAMETER (LAX) NORMALS NORMALS Diastolic 5. (3.6-5.2) Eject. Fract. 60% (60%+/-6%) Systolic (2.3-3.9) Diastolic Vol. % Shortening (0.22-0.42) Systolic Vol. Aortic Root IVS THICKNESS Diastolic 1.2 (0.6-1.1) LVPW THICKNESS Diastolic 1.1 (0.6-1.1) LA DIAMETER Systolic 3.7 (2.1-3.7) FINDINGS: 1. Technically difficult study. 2. The left ventricle is normal in size with moderate left ventricular hypertrophy noted diffusely. Systolic function appeared to be normal. Estimated ejection fraction 60%. 3. The left atrium is normal in size. No clot or thrombus were seen within the left atrium. 4. The right atrium and right ventricle are normal in size. No clot or thrombus were seen within the right side. 5. Mitral valve is calcified with moderate mitral regurgitation noted by color Doppler flow. No mitral valve prolapse. No mitral valve stenosis. 6. Aortic valve is heavily calcified. No significant aortic valve stenosis was noted. Mild to moderate aortic regurgitation was noted by color Doppler flow. 7. Tricuspid valve is normal in morphology with moderate tricuspid regurgitation noted by color Doppler flow. Doppler across tricuspid valve estimated pulmonary artery pressure of 52+ right atrial pressure. 8. Pulmonic valve is functioning normally. 9. No pericardial effusion. CONCLUSION: 1. Mild to moderate left ventricular hypertrophy. Normal systolic function. Estimated ejection fraction 60%. 2. Mitral valve with moderate mitral regurgitation, mild to moderate aortic regurgitation. Mild to moderate tricuspid regurgitation. 3. Severe pulmonary hypertension with estimated pulmonary artery pressure of 60 mmHg. Job ID: [id number] Dictated Date: 05/04/2016 14:51:00 [employer] Date: 05/05/2016 07:03:17 / daisy
[2016-05-05] MEDS ORDERED: MULTIVIT W/MINERALS TAB (THERAGRAN M) PO SCH (09:00)
[2016-05-05] MEDS ORDERED: ASPIRIN 81 MG CHEW (CHILDREN'S ASA) PO SCH (09:00)
== END 2016-05-04 16:10 | disposition home or self-care (01) | DRG 640 ==
LOC: EDUNIT# 06:01 → ER 06:02 → ICU 07:27
PROVIDERS: ADMIT Internal Medicine; ATTEND Internal Medicine
DX: E86.0 Dehydration (principal); I46.9 Cardiac arrest, cause unspecified; R55 Syncope and collapse; N28.9 Disorder of kidney and ureter, unspecified; E87.6 Hypokalemia; R63.0 Anorexia; R63.4 Abnormal weight loss; I65.23 Occlusion and stenosis of bilateral carotid arteries; I27.2 Other secondary pulmonary hypertension; I08.3 Combined rheumatic disorders of mitral, aortic and tricuspid valves; D47.3 Essential (hemorrhagic) thrombocythemia; Z63.79 Other stressful life events affecting family and household; Z85.46 Personal history of malignant neoplasm of prostate; Z85.828 Personal history of other malignant neoplasm of skin; Z90.79 Acquired absence of other genital organ(s)
CPT/HCPCS: 36415; 71010; 80053; 82150; 82805; 82962; 83605; 83690; 83735; 84484; 85025; 85610; 85730; 87081; 93041; 93306; 93880; 96374; 99291

== ENCOUNTER 2016-09-11 09:46 | Outpatient (RCR) | payer MEDICARE ==
[~2016-09-11 09:46] MED LIST changes: +HYDR500C2 PO; +METO-270 PO; +OMEG-9 PO
[2016-09-11 10:08] LABS: BASOPHILS % (AUTO) 1 % (0-10); EOSINOPHILS # (AUTO) 0.1 10^3/uL (0.0-0.3); EOSINOPHILS % (AUTO) 1 % (0-10); LYMPHOCYTES # (AUTO) 1.1 X 10^3 (1.0-4.0); LYMPHOCYTES % (AUTO) 20 % (12-44); MEAN CORPUSCULAR HEMOGLOBIN 40 PG (25-34); MEAN CORPUSCULAR HGB CONC 35 G/DL (32-36); MEAN CORPUSCULAR VOLUME 117 FL (80-99); MEAN PLATELET VOLUME 9.4 FL (7.4-10.4); MONOCYTES # (AUTO) 0.6 X 10^3 (0.0-1.0); MONOCYTES % (AUTO) 10 % (0-12); NEUTROPHILS # (AUTO) 3.9 X 10^3 (1.8-7.8); NEUTROPHILS % (AUTO) 69 % (42-75); PLATELET COUNT 264 10^3/uL (130-400); RED BLOOD COUNT 3.59 10^6/uL (4.35-5.85); RED CELL DISTRIBUTION WIDTH 12.9 % (10.0-14.5); WHITE BLOOD COUNT 5.7 10^3/uL (4.3-11.0)
[2016-09-11 10:56] LABS: ALBUMIN 3.7 GM/DL (3.2-4.5); BILIRUBIN,TOTAL 0.6 MG/DL (0.1-1.0); CALCIUM 8.8 MG/DL (8.5-10.1); CREATININE SERUM 1.21 MG/DL (0.60-1.30); POTASSIUM 4.8 MMOL/L (3.6-5.0); TOTAL PROTEIN 6.8 GM/DL (6.4-8.2)
== END 2016-11-18 | disposition home or self-care (01) ==
LOC: ONC 09:46
PROVIDERS: ATTEND Internal Medicine Hematology & Oncology
DX: Z85.46 Personal history of malignant neoplasm of prostate; N18.3 Chronic kidney disease, stage 3 (moderate); Z79.899 Other long term (current) drug therapy; I12.9 Hypertensive chronic kidney disease with stage 1 through stage 4 chronic kidney disease, or unspecified chronic kidney disease; D47.3 Essential (hemorrhagic) thrombocythemia
CPT/HCPCS: 36415; 80053; 83615; 85025; 99213

== ENCOUNTER 2017-02-27 08:34 | Outpatient (RCR) | payer MEDICARE ==
[~2017-02-27 08:34] MED LIST changes: -METO-270 PO; +METO-387 PO
[2017-02-27 08:46] LABS: BASOPHILS % (AUTO) 1 % (0-10); EOSINOPHILS # (AUTO) 0.1 10^3/uL (0.0-0.3); EOSINOPHILS % (AUTO) 2 % (0-10); HEMATOCRIT 39 % (40-54); HEMOGLOBIN 13.9 G/DL (13.3-17.7); LYMPHOCYTES # (AUTO) 0.8 X 10^3 (1.0-4.0); LYMPHOCYTES % (AUTO) 15 % (12-44); MEAN CORPUSCULAR HEMOGLOBIN 42 PG (25-34); MEAN CORPUSCULAR HGB CONC 36 G/DL (32-36); MEAN CORPUSCULAR VOLUME 117 FL (80-99); MEAN PLATELET VOLUME 9.5 FL (7.4-10.4); MONOCYTES # (AUTO) 0.4 X 10^3 (0.0-1.0); MONOCYTES % (AUTO) 9 % (0-12); NEUTROPHILS # (AUTO) 3.7 X 10^3 (1.8-7.8); NEUTROPHILS % (AUTO) 73 % (42-75); PLATELET COUNT 276 10^3/uL (130-400); RED BLOOD COUNT 3.31 10^6/uL (4.35-5.85); RED CELL DISTRIBUTION WIDTH 12.9 % (10.0-14.5)
[2017-02-27 09:04] LABS: ALBUMIN 3.7 GM/DL (3.2-4.5); BILIRUBIN,TOTAL 0.9 MG/DL (0.1-1.0); CALCIUM 8.7 MG/DL (8.5-10.1); CREATININE SERUM 1.24 MG/DL (0.60-1.30); POTASSIUM 4.1 MMOL/L (3.6-5.0); TOTAL PROTEIN 6.4 GM/DL (6.4-8.2)
== END 2017-05-28 | disposition home or self-care (01) ==
LOC: ONC 08:34
PROVIDERS: ATTEND Internal Medicine Hematology & Oncology
DX: D47.3 Essential (hemorrhagic) thrombocythemia (principal); I12.9 Hypertensive chronic kidney disease with stage 1 through stage 4 chronic kidney disease, or unspecified chronic kidney disease; N18.3 Chronic kidney disease, stage 3 (moderate); Z85.46 Personal history of malignant neoplasm of prostate; Z79.899 Other long term (current) drug therapy
CPT/HCPCS: 36415; 80053; 83615; 85025; 99213

== ENCOUNTER 2017-08-28 08:55 | Outpatient (RCR) | payer MEDICARE ==
[2017-08-28 09:04] LABS: BASOPHILS % (AUTO) 1 % (0-10); EOSINOPHILS # (AUTO) 0.1 10^3/uL (0.0-0.3); EOSINOPHILS % (AUTO) 2 % (0-10); HEMATOCRIT 40 % (40-54); HEMOGLOBIN 14.4 G/DL (13.3-17.7); LYMPHOCYTES # (AUTO) 1.1 X 10^3 (1.0-4.0); LYMPHOCYTES % (AUTO) 23 % (12-44); MEAN CORPUSCULAR HEMOGLOBIN 42 PG (25-34); MEAN CORPUSCULAR HGB CONC 36 G/DL (32-36); MEAN CORPUSCULAR VOLUME 116 FL (80-99); MEAN PLATELET VOLUME 9.4 FL (7.4-10.4); MONOCYTES # (AUTO) 0.5 X 10^3 (0.0-1.0); MONOCYTES % (AUTO) 11 % (0-12); NEUTROPHILS # (AUTO) 2.9 X 10^3 (1.8-7.8); NEUTROPHILS % (AUTO) 63 % (42-75); PLATELET COUNT 249 10^3/uL (130-400); RED BLOOD COUNT 3.44 10^6/uL (4.35-5.85); RED CELL DISTRIBUTION WIDTH 12.9 % (10.0-14.5); WHITE BLOOD COUNT 4.6 10^3/uL (4.3-11.0)
[2017-08-28 09:23] LABS: ALANINE AMINOTRANSFERASE 14 U/L (0-55); ALBUMIN 3.8 GM/DL (3.2-4.5); ALKALINE PHOSPHATASE 69 U/L (40-136); BUN/CREATININE RATIO 14; CALCIUM 8.7 MG/DL (8.5-10.1); CARBON DIOXIDE 25 MMOL/L (21-32); CHLORIDE 112 MMOL/L (98-107); CREATININE SERUM 1.16 MG/DL (0.60-1.30); GFR ESTIMATED > 60; GLUCOSE 121 MG/DL (70-105); POTASSIUM 4.3 MMOL/L (3.6-5.0); SODIUM 141 MMOL/L (135-145); TOTAL PROTEIN 6.5 GM/DL (6.4-8.2)
== END 2017-09-18 | disposition home or self-care (01) ==
LOC: ONC 08:55
PROVIDERS: ATTEND Internal Medicine Hematology & Oncology
DX: D47.3 Essential (hemorrhagic) thrombocythemia (principal); I12.9 Hypertensive chronic kidney disease with stage 1 through stage 4 chronic kidney disease, or unspecified chronic kidney disease; N18.3 Chronic kidney disease, stage 3 (moderate); Z85.46 Personal history of malignant neoplasm of prostate; Z79.899 Other long term (current) drug therapy
CPT/HCPCS: 36415; 80053; 83615; 85025; 99213

== ENCOUNTER 2018-02-26 08:54 | Outpatient (RCR) | payer MEDICARE ==
[2018-02-26 09:12] LABS: BASOPHILS % (AUTO) 1 % (0-10); EOSINOPHILS # (AUTO) 0.1 10^3/uL (0.0-0.3); EOSINOPHILS % (AUTO) 2 % (0-10); HEMATOCRIT 39 % (40-54); HEMOGLOBIN 13.3 G/DL (13.3-17.7); LYMPHOCYTES % (AUTO) 18 % (12-44); MEAN CORPUSCULAR HEMOGLOBIN 40 PG (25-34); MEAN CORPUSCULAR HGB CONC 34 G/DL (32-36); MEAN CORPUSCULAR VOLUME 118 FL (80-99); MEAN PLATELET VOLUME 9.1 FL (7.4-10.4); MONOCYTES # (AUTO) 0.3 X 10^3 (0.0-1.0); MONOCYTES % (AUTO) 6 % (0-12); NEUTROPHILS # (AUTO) 3.9 X 10^3 (1.8-7.8); NEUTROPHILS % (AUTO) 73 % (42-75); PLATELET COUNT 292 10^3/uL (130-400); WHITE BLOOD COUNT 5.4 10^3/uL (4.3-11.0)
[2018-02-26 09:34] LABS: ALBUMIN 3.7 GM/DL (3.2-4.5); BILIRUBIN,TOTAL 0.7 MG/DL (0.1-1.0); CALCIUM 8.9 MG/DL (8.5-10.1); CREATININE SERUM 1.22 MG/DL (0.60-1.30); TOTAL PROTEIN 6.2 GM/DL (6.4-8.2)
== END 2018-05-27 | disposition home or self-care (01) ==
LOC: ONC 08:54
PROVIDERS: ATTEND Internal Medicine Hematology & Oncology
DX: D47.3 Essential (hemorrhagic) thrombocythemia (principal); I12.9 Hypertensive chronic kidney disease with stage 1 through stage 4 chronic kidney disease, or unspecified chronic kidney disease; N18.3 Chronic kidney disease, stage 3 (moderate); Z85.46 Personal history of malignant neoplasm of prostate; Z79.899 Other long term (current) drug therapy
CPT/HCPCS: 36415; 80053; 83615; 85025; 99213

== ENCOUNTER → 2019-01-29 | Outpatient (CLI) | payer MEDICARE ==
[2019-01-29 13:37] LABS: BASOPHILS % (AUTO) 1 % (0-10); EOSINOPHILS # (AUTO) 0.1 10^3/uL (0.0-0.3); EOSINOPHILS % (AUTO) 1 % (0-10); HEMATOCRIT 41 % (40-54); HEMOGLOBIN 14.1 G/DL (13.3-17.7); LYMPHOCYTES # (AUTO) 0.9 X 10^3 (1.0-4.0); LYMPHOCYTES % (AUTO) 18 % (12-44); MEAN CORPUSCULAR HEMOGLOBIN 40 PG (25-34); MEAN CORPUSCULAR HGB CONC 35 G/DL (32-36); MEAN CORPUSCULAR VOLUME 116 FL (80-99); MEAN PLATELET VOLUME 9.4 FL (7.4-10.4); MONOCYTES # (AUTO) 0.6 X 10^3 (0.0-1.0); MONOCYTES % (AUTO) 11 % (0-12); NEUTROPHILS # (AUTO) 3.5 X 10^3 (1.8-7.8); NEUTROPHILS % (AUTO) 70 % (42-75); PLATELET COUNT 286 10^3/uL (130-400); RED CELL DISTRIBUTION WIDTH 12.6 % (10.0-14.5); WHITE BLOOD COUNT 5.1 10^3/uL (4.3-11.0)
[2019-01-29 14:00] LABS: ALBUMIN 3.9 GM/DL (3.2-4.5); BILIRUBIN,TOTAL 0.9 MG/DL (0.1-1.0); CREATININE SERUM 1.28 MG/DL (0.60-1.30); POTASSIUM 4.3 MMOL/L (3.6-5.0); TOTAL PROTEIN 6.5 GM/DL (6.4-8.2)
== END ==
LOC: EDSTATUS 05-28 11:14 → ONC 13:08
PROVIDERS: ATTEND Internal Medicine Hematology & Oncology
DX: D47.3 Essential (hemorrhagic) thrombocythemia (principal); I12.9 Hypertensive chronic kidney disease with stage 1 through stage 4 chronic kidney disease, or unspecified chronic kidney disease; N18.3 Chronic kidney disease, stage 3 (moderate); Z85.46 Personal history of malignant neoplasm of prostate; Z79.899 Other long term (current) drug therapy
CPT/HCPCS: 80053; 83615; 85025; 99213

== ENCOUNTER 2019-07-28 09:48 | Outpatient (RCR) | payer MEDICARE ==
[~2019-07-28 09:48] MED LIST changes: -METO-387 PO; +MTP25TSR PO
== END 2019-10-26 | disposition home or self-care (01) ==
LOC: ONC 09:48
PROVIDERS: ATTEND Internal Medicine Hematology & Oncology
DX: Z51.81 Encounter for therapeutic drug level monitoring (principal); Z15.89 Genetic susceptibility to other disease; N18.3 Chronic kidney disease, stage 3 (moderate); D47.3 Essential (hemorrhagic) thrombocythemia; Z79.899 Other long term (current) drug therapy
CPT/HCPCS: 80053; 83615; 85025; G0463; 99213

== ENCOUNTER 2020-01-27 09:53 | Outpatient (RCR) | payer MEDICARE ==
[2020-01-27 10:48] LABS: BASOPHILS # (AUTO) 0.1 10^3/uL (0.0-0.1); BASOPHILS % (AUTO) 1 % (0-10); EOSINOPHILS # (AUTO) 0.1 10^3/uL (0.0-0.3); EOSINOPHILS % (AUTO) 2 % (0-10); HEMATOCRIT 42 % (40-54); HEMOGLOBIN 14.2 g/dL (13.3-17.7); LYMPHOCYTES # (AUTO) 0.9 10^3/uL (1.0-4.0); LYMPHOCYTES % (AUTO) 14 % (12-44); MEAN CORPUSCULAR HEMOGLOBIN 41 pg (25-34); MEAN CORPUSCULAR HGB CONC 34 g/dL (32-36); MEAN CORPUSCULAR VOLUME 120 fL (80-99); MEAN PLATELET VOLUME 9.9 fL (9.0-12.2); MONOCYTES # (AUTO) 0.5 10^3/uL (0.0-1.0); MONOCYTES % (AUTO) 8 % (0-12); NEUTROPHILS # (AUTO) 4.9 10^3/uL (1.8-7.8); NEUTROPHILS % (AUTO) 75 % (42-75); PLATELET COUNT 286 10^3/uL (130-400); WHITE BLOOD COUNT 6.5 10^3/uL (4.3-11.0)
[2020-01-27 11:12] LABS: ALBUMIN 3.9 GM/DL (3.2-4.5); BILIRUBIN,TOTAL 0.9 MG/DL (0.1-1.0); CALCIUM 8.5 MG/DL (8.5-10.1); CREATININE SERUM 1.19 MG/DL (0.60-1.30); POTASSIUM 4.5 MMOL/L (3.6-5.0); TOTAL PROTEIN 6.4 GM/DL (6.4-8.2)
== END 2020-04-26 | disposition home or self-care (01) ==
LOC: ONC 09:53
PROVIDERS: ATTEND Internal Medicine Hematology & Oncology
DX: D47.3 Essential (hemorrhagic) thrombocythemia (principal); I13.0 Hypertensive heart and chronic kidney disease with heart failure and stage 1 through stage 4 chronic kidney disease, or unspecified chronic kidney disease; N18.30 Chronic kidney disease, stage 3 unspecified; E78.00 Pure hypercholesterolemia, unspecified; I50.9 Heart failure, unspecified; Z79.899 Other long term (current) drug therapy
CPT/HCPCS: 80053; 83615; 85025; G0463; 99213

== ENCOUNTER 2020-06-09 05:34 | Outpatient (CLI) | payer MEDICARE ==
[~2020-06-09] VITALS: Ht 175.3 cm; Wt 72.7 kg
== END 2020-06-09 14:11 | disposition home or self-care (01) ==
LOC: PREOP 05:34
PROVIDERS: ATTEND Surgery
DX: Z01.818 Encounter for other preprocedural examination (principal)

== ENCOUNTER 2020-06-16 08:43 | Day surgery (SDC) | payer MEDICARE ==
[2020-06-16] VITALS (9 sets, daily range): BP systolic 107–191; BP diastolic 59–95
[~2020-06-16] VITALS: Ht 175.3 cm; Wt 72.7 kg
[2020-06-16] MEDS ORDERED: LACTATED RINGERS 1,000 ML IV PRN (09:15)
[2020-06-16] MEDS ORDERED: ceFAZolin 2 GM IV Premixed 50 ML IV ONE (09:15)
[2020-06-16] MEDS ORDERED: PROPOFOL INJECTION 50 ML IV ONE (10:24)
--- NOTE | 2020-06-16 10:35 | Progress Note-Pre Operative ---
Pre-Operative Progress Note H&P Reviewed The H&P was reviewed, patient examined and no changes noted. Time Seen by Provider: 10:32 Date H&P Reviewed: Jun 16, 2020 Time H&P Reviewed: 10:32 Pre-Operative Diagnosis: Left arm Squamous cell CA, site marked VENKATA PRITCHETT DO Jun 16, 2020 10:35
[2020-06-16] MEDS ORDERED: LIDOCAINE/EPI 1%-1:100,000 (XYLOCAINE) 20ML ONE (10:58)
[2020-06-16] MEDS ORDERED: fentaNYL INJ 100 MCG/2 ML AMP ONE (11:13)
[2020-06-16] MEDS ORDERED: hydrALAZINE (APESOLINE) 20 MG/ML VIAL ONE (11:35)
--- NOTE | 2020-06-16 12:01 | Progress Note-Post Operative ---
Post-Operative Progess Note Surgeon (s)/Band Instrument Repairer (s) Surgeon VENKATA PRITCHETT DO Band Instrument Repairer: MARLEEN Clark Pre-Operative Diagnosis Left arm Squamous cell CA, site marked Post-Operative Diagnosis same pending path Procedure & Operative Findings Date of Procedure 06/16/20 Procedure Performed/Findings Wide local excision of Squamous CA, 5.7 x 3 cm Anesthesia Type IV sedation by INSTRUCTIONAL SUPPORT ASSISTANT Estimated Blood Loss Estimated blood loss (mL): scant Specimens/Packing Specimens Removed squamous cell CA left arm VENKATA PRITCHETT DO Jun 16, 2020 12:01
[2020-06-16] MEDS ORDERED: ACHD5005 PO (12:02)
--- NOTE | 2020-06-16 12:02 | Discharge Inst-Surgical ---
Discharge Inst-Surgical Depart Medication/Instructions New, Converted or Re-Newed RX: RX Given to Pt/Family Patient Instructions Follow up Appt: Make appointment for 1 week. [phone] Instructions: No lifting greater than 20 pounds. No strenuous activity. May shower in 24 hours, no tub bath or soaking. Use incentive spirometer at home as directed. No Smoking Skin/Wound Care: May remove bandages in am. You need to leave the sutures in place and come to office to have them removed. Symptoms to Report: Appetite Changes, Extremity Discoloration, Numbness/Tingling, Swelling Increased, Bleeding Excessive, Eyesight Changes, Pain Increased, Urine Color Change, Constipation(Persistent), Fever over 101 degree F, Pain/Pressure in chest, Urinating Difficulty, Cough Up/Vomit Blood, Heart Beat Irreg/Pounding, Pain/Pressure in jaw, Cramps in feet or legs, Lightheadedness, Pain/Pressure in shoulder, Diarrhea(Persistent), Memory Changes Suddenly, Questions/Concerns, Weight gain consecutive days, Dizziness/Fainting, Nausea/Vomiting, Shortness of Breath, Weight gain over 2 pounds If questions or concerns contact your physician Or seek help at emergency department. Activity Activity Instructions: Avoid Stress to Incision Driving Instructions: No Driving/Refer to Diet Discharge Diet: No Restrictions Diet After 24 Hours: Clear Liquid if Nauseous If Any Problems/Questions/Issu: Contact Your Physician, Go to Emergency Room Skin/Wound Care Infection Signs and Symptoms: Increased Redness, Foul Odor of Wound, Increased Drainage, Skin Itchy or Has a Rash, Increased Swelling, Temperature Above 101 F Bathing Instructions: Shower Stitches/[place]/Dermabond Dis: Care of Stitches VENKATA PRITCHETT DO Jun 16, 2020 12:02
--- NOTE | 2020-06-16 12:06 | Anesthesia-General Post-Op ---
MAC Patient Condition Mental Status/LOC: Same as Preop Cardiovascular: Satisfactory Nausea/Vomiting: Absent Respiratory: Satisfactory Pain: Controlled Complications: Absent Post Op Complications Complications None Follow Up Care/Instructions Patient Instructions None needed. Anesthesiology Discharge Order Discharge Order Patient is doing well, no complaints, stable vital signs, no apparent adverse anesthesia problems. No complications reported per nursing. PROSPER RUIZ CRNA Jun 16, 2020 12:06
[2020-06-16] MEDS ORDERED: MEPERIDINE (DEMEROL) INJ 50 MG/ML IVP ONE (12:15)
[2020-06-16] MEDS ORDERED: ONDANSETRON 4 MG/2 ML (SDV) Z0FRAN IVP PRN (12:15)
[2020-06-16] MEDS ORDERED: morphine INJ 10 MG/ML 1ML (SYR OR VIAL) IVP ONE (12:15)
--- NOTE | 2020-06-16 16:27 | OPERATIVE REPORT ---
DATE OF SERVICE: PREOPERATIVE DIAGNOSIS: Squamous cell cancer, left arm. POSTOPERATIVE DIAGNOSIS: Squamous cell cancer, left arm, pending pathology. PROCEDURE: Wide local excision of squamous cell. Incision measured 5.7 x 3 cm. SURGEON: Dilan Kessler DO METAL SPRAYER MACHINED PARTS: Annette Fernandez, MS3. ANESTHESIA: IV sedation by CRM SYSTEM ADMINISTRATOR. SPECIMEN: Left arm squamous cell cancer. BLOOD LOSS: Scant. FLUIDS: Per anesthesia. POSTOPERATIVE CONDITION: Stable. INDICATION FOR PROCEDURE: The patient is an 79-year-old male who has a squamous cell cancer of the left arm, needed to get this removed. FINDINGS: The patient had a squamous cell cancer removed. A 5.7 x 3 cm incision, sent to pathology. PROCEDURE NOTE: After informed consent was obtained, the patient was brought to the operating room, placed on the operating table in supine position, sterilely prepped and draped in normal fashion. Local lidocaine was used to infiltrate the skin around the area. Elliptical incision had been drawn and site had been marked. We made an incision with #15 blade, carried down through the skin and subcutaneous tissue, then deepened down to subcutaneous tissue with Bovie electrocautery down just under the skin and then into the subcutaneous tissue. I then using Bovie electrocautery, dissected under it and remove this completely, marked it short superior stitch, long lateral stitch and passed off the table. Area was irrigated. Hemostasis obtained using Bovie electrocautery, then created flaps superiorly and inferiorly undermining the skin with Bovie electrocautery and then elected to close the incision with 5 interrupted vertical mattress sutures and 5 simple sutures. Area was cleaned and dried, dressing placed. The patient tolerated the procedure. Sponge, instrument and needle count correct at the end of the case. Job ID: [id number] DocumentID: [id number] Dictated Date: 06/16/2020 12:32:37 Armored Service Technician Date: 06/16/2020 16:26:20 Dictated By: DILAN KESSLER DO
== END 2020-06-16 13:55 | disposition home or self-care (01) ==
LOC: SDC 08:43
PROVIDERS: ATTEND Surgery
DX: C44.629 Squamous cell carcinoma of skin of left upper limb, including shoulder (principal); E78.00 Pure hypercholesterolemia, unspecified; D63.0 Anemia in neoplastic disease; I13.0 Hypertensive heart and chronic kidney disease with heart failure and stage 1 through stage 4 chronic kidney disease, or unspecified chronic kidney disease; N18.30 Chronic kidney disease, stage 3 unspecified; I50.9 Heart failure, unspecified; D63.1 Anemia in chronic kidney disease; D47.3 Essential (hemorrhagic) thrombocythemia; Z79.02 Long term (current) use of antithrombotics/antiplatelets; Z79.899 Other long term (current) drug therapy; Z79.82 Long term (current) use of aspirin
CPT/HCPCS: 87081; 88305

== ENCOUNTER 2020-07-26 10:20 | Outpatient (RCR) | payer MEDICARE ==
[~2020-07-26 10:20] MED LIST changes: +ACHD5005 PO
[2020-07-26 10:35] LABS: BASOPHILS % (AUTO) 0 % (0-10); EOSINOPHILS # (AUTO) 0.1 10^3/uL (0.0-0.3); EOSINOPHILS % (AUTO) 1 % (0-10); HEMATOCRIT 41 % (40-54); LYMPHOCYTES # (AUTO) 1.1 X 10^3 (1.0-4.0); LYMPHOCYTES % (AUTO) 18 % (12-44); MEAN CORPUSCULAR HEMOGLOBIN 41 pg (25-34); MEAN CORPUSCULAR HGB CONC 35 g/dL (32-36); MEAN CORPUSCULAR VOLUME 120 fL (80-99); MEAN PLATELET VOLUME 9.8 fL (9.0-12.2); MONOCYTES # (AUTO) 0.5 X 10^3 (0.0-1.0); MONOCYTES % (AUTO) 8 % (0-12); NEUTROPHILS # (AUTO) 4.3 X 10^3 (1.8-7.8); NEUTROPHILS % (AUTO) 72 % (42-75); PLATELET COUNT 250 10^3/uL (130-400)
[2020-07-26 10:45] LABS: ALANINE AMINOTRANSFERASE 17 U/L (0-55); ALBUMIN 3.8 GM/DL (3.2-4.5); ALKALINE PHOSPHATASE 70 U/L (40-136); BILIRUBIN,TOTAL 0.9 MG/DL (0.1-1.0); BUN/CREATININE RATIO 15; CARBON DIOXIDE 25 MMOL/L (21-32); CHLORIDE 110 MMOL/L (98-107); CREATININE SERUM 1.11 MG/DL (0.60-1.30); GFR ESTIMATED > 60; GLUCOSE 93 MG/DL (70-105); SODIUM 142 MMOL/L (135-145); TOTAL PROTEIN 6.6 GM/DL (6.4-8.2)
== END 2020-10-24 | disposition home or self-care (01) ==
LOC: ONC 10:20
PROVIDERS: ATTEND Internal Medicine Hematology & Oncology
DX: D47.3 Essential (hemorrhagic) thrombocythemia (principal); I13.0 Hypertensive heart and chronic kidney disease with heart failure and stage 1 through stage 4 chronic kidney disease, or unspecified chronic kidney disease; N18.30 Chronic kidney disease, stage 3 unspecified; E78.00 Pure hypercholesterolemia, unspecified; I50.9 Heart failure, unspecified; Z79.899 Other long term (current) drug therapy
CPT/HCPCS: 80053; 83615; 85025; G0463; 99213

== ENCOUNTER → 2021-01-26 | Outpatient (CLI) | payer MEDICARE ==
[2021-01-26 10:14] LABS: BASOPHILS % (AUTO) 1 % (0-10); EOSINOPHILS # (AUTO) 0.1 10^3/uL (0.0-0.3); EOSINOPHILS % (AUTO) 1 % (0-10); HEMATOCRIT 42 % (40-54); HEMOGLOBIN 14.7 g/dL (13.3-17.7); LYMPHOCYTES % (AUTO) 17 % (12-44); MEAN CORPUSCULAR HEMOGLOBIN 42 pg (25-34); MEAN CORPUSCULAR HGB CONC 35 g/dL (32-36); MEAN CORPUSCULAR VOLUME 120 fL (80-99); MEAN PLATELET VOLUME 9.6 fL (9.0-12.2); MONOCYTES # (AUTO) 0.5 10^3/uL (0.0-1.0); MONOCYTES % (AUTO) 9 % (0-12); NEUTROPHILS # (AUTO) 3.9 10^3/uL (1.8-7.8); NEUTROPHILS % (AUTO) 71 % (42-75); PLATELET COUNT 266 10^3/uL (130-400); WHITE BLOOD COUNT 5.5 10^3/uL (4.3-11.0)
[2021-01-26 10:33] LABS: BILIRUBIN,TOTAL 1.1 MG/DL (0.1-1.0); CALCIUM 9.7 MG/DL (8.5-10.1); CREATININE SERUM 1.28 MG/DL (0.60-1.30); POTASSIUM 4.1 MMOL/L (3.6-5.0)
== END ==
LOC: ONC 10:03
PROVIDERS: ATTEND Internal Medicine Hematology & Oncology
DX: Z51.11 Encounter for antineoplastic chemotherapy (principal); D47.3 Essential (hemorrhagic) thrombocythemia; I10 Essential (primary) hypertension; E78.00 Pure hypercholesterolemia, unspecified
CPT/HCPCS: 80053; 83615; 85025; 99213

== ENCOUNTER → 2021-11-01 | Outpatient (CLI) | payer MEDICARE ==
--- NOTE | 2021-11-01 18:20 | Diagnostic Imaging Report ---
INDICATION: Neck pain. Time of Exam: 4:53 PM AP, lateral and odontoid views of the cervical spine were obtained. There is minimal anterolisthesis of C4 on C5. There is some degenerative disc disease at C6-C7 level with disc space narrowing and marginal spurring. Prevertebral tissues are normal. Odontoid is intact. No fractures are seen. IMPRESSION: Mild cervical spondylosis and listhesis. No acute bony abnormality is detected. Dictated by: Dictated on workstation # [id number]
== END ==
LOC: RAD 16:29
PROVIDERS: ATTEND Nurse Practitioner Family
DX: M47.812 Spondylosis without myelopathy or radiculopathy, cervical region (principal); M43.12 Spondylolisthesis, cervical region
CPT/HCPCS: 72040

== ENCOUNTER → 2021-11-14 | Outpatient (CLI) | payer MEDICARE | LOC: CARD 14:30 | PROVIDERS: ATTEND Internal Medicine Cardiovascular Disease | DX: I35.0 Nonrheumatic aortic (valve) stenosis (principal); I10 Essential (primary) hypertension; I25.10 Atherosclerotic heart disease of native coronary artery without angina pectoris | CPT/HCPCS: 93306 ==

== ENCOUNTER → 2021-11-23 | Outpatient (CLI) | payer MEDICARE ==
[~2021-11-23] VITALS: Ht 175 cm; Wt 70.0 kg
[~2021-11-23] MED LIST changes: +CATHETER FLUSH 10 ML SYR IVP PRN
[2021-11-23 12:41] VITALS: BP 185/93
--- NOTE | 2021-11-24 07:46 | Cardiology Stress Test Report ---
Stress Test Report Date of Procedure/Referring: Date of Procedure: Nov 23, 2021 PCP Claritza Zhu MD Admitting Physician Admitting Physician: Attending Physician: Asher Herring MD Indications: CP Baseline Heart Rate: 85 Baseline Blood Pressure: Blood Pressure Systolic: 185 Blood Pressure Diastolic: 93 Vital Signs Date Time Temp Pulse Resp B/P (MAP) Pulse Ox O2 Delivery O2 Flow Rate FiO2 11/23/21 12:41 82 185/93 (123) 98 Baseline Vital Signs Vital Signs Date Time Temp Pulse Resp B/P (MAP) Pulse Ox O2 Delivery O2 Flow Rate FiO2 11/23/21 12:41 82 185/93 (123) 98 Baseline EKG: Baseline EKG: RBBB Summary: After explaining the procedure and details to the patient, he signed the consent and was brought to the stress nuclear laboratory. Patient exercised on standard Horace protocol, EKG, heart rate and blood pressure were monitored continuously, resting and stress doses of radio tracer were injected, imaging was acquired and reviewed in the short axis, horizontal long axis and vertical long axis views Patient was able to exercise for a total of 3 minutes on Horace protocol, METs 4.6 Maximum heart rate 137 Maximum blood pressure 214/97 Stress EKG, Minimal nondiagnostic changes Recovery EKG, Return to baseline TID: 1.17 SSS: 2 SDS: 0 EF: 68 Conclusion: 1. Poor exercise tolerance for a total of 3 minutes on standard Horace protocol, 4.6 METS achieving 100% of maximum expected heart rate 2. Appropriate heart rate response to exercise with hypertensive response to exercise with peak blood pressure 214/97 return to baseline during recovery 3. Baseline right bundle branch block with nondiagnostic EKG changes with exercise return to baseline during recovery 4. No significant ischemia or infarction on SPECT images 5. Normal left ventricular size, ejection fraction 68% Copy Copies To 1: CLARITZA ZHU MD, BASHAR J MD Nov 24, 2021 07:46
== END ==
LOC: CARD 12:15
PROVIDERS: ATTEND Internal Medicine Cardiovascular Disease
DX: I10 Essential (primary) hypertension (principal); R07.9 Chest pain, unspecified
CPT/HCPCS: 78452; 93017; A9502

== ENCOUNTER 2022-02-22 09:09 | Outpatient (CLI) | payer MEDICARE ==
[2022-02-22] VITALS (20 sets, daily range): BP systolic 89–195; BP diastolic 50–102
[~2022-02-22 09:09] MED LIST changes: -CATHETER FLUSH 10 ML SYR IVP PRN
[2022-02-22] MEDS ORDERED: NS IV 1000 ML 1,000 ML ONE (09:51)
[2022-02-22] MEDS ORDERED: NS IV 1000 ML 1,000 ML IV SCH (10:00)
[2022-02-22] MEDS ORDERED: ATROPINE INJECTION 1 MG/10 ML SYR (ABBOTT) ONE (10:12)
--- NOTE | 2022-02-22 11:00 | Cardiology Tilt Table Test ---
Cardiology-Tilt Table Test Tilt Table Test Date 02/22/22 Baseline Vitals Vital Signs Date Time Temp Pulse Resp B/P (MAP) Pulse Ox O2 Delivery O2 Flow Rate FiO2 02/22/22 09:42 36.5 70 16 192/95 (127) 97 Vital Signs VS - Last 72 Hours, by Label 02/22/22 02/22/22 02/22/22 02/22/22 09:42 10:00 10:01 10:02 Temp 36.5 Pulse 70 67 68 65 Resp 16 B/P (MAP) 192/95 (127) 187/96 (126) 195/102 (133) 193/102 (132) Pulse Ox 97 98 96 02/22/22 02/22/22 02/22/22 02/22/22 10:04 10:05 10:06 10:08 Pulse 66 71 B/P (MAP) 184/96 (125) 191/95 (127) 175/94 (121) 175/94 (121) 02/22/22 02/22/22 02/22/22 02/22/22 10:09 10:11 10:12 10:13 Pulse 67 68 71 66 B/P (MAP) 175/94 (121) 174/98 (123) 165/84 (111) 143/87 (105) 02/22/22 02/22/22 02/22/22 02/22/22 10:15 10:17 10:18 10:22 Pulse 70 84 50 61 B/P (MAP) 141/79 (99) 89/50 (63) 111/73 (86) 02/22/22 02/22/22 02/22/22 02/22/22 10:27 10:30 10:36 10:42 Pulse 60 62 66 68 B/P (MAP) 120/66 (84) 125/72 (89) 130/77 (94) 146/87 (106) 02/22/22 10:50 Pulse 67 B/P (MAP) 114/82 (93) Patient was tilted to 75 degrees for [10] minutes, then returned to supine p osition, given [2] sublingual nitroglycerin tablets, then tilted again to 75 degrees for [15] minutes. During test, patient was: had a syncopal event at minute (3, stage 2 with BP dropping to 89/53) In Conclusion;: Vasovagal Syncope with (Vasodepressor Syncope) Patient had syncopal episode during stage 2 at minute 3 with BP 89/53. HR remained stable. Patient had vasodepressor syncope with hypotension followed by mild bradycardia Regained consciousness fairly quickly Patient instructed to increase fluid intake and use compression stockings. I will d/c amlodipine 2.5mg at this time and accept SBP in the 160s. F/u in our office next month. This is Adrienne Owusu PA-C, as a scribe for Dr. Herring. ADRIENNE GARCIA Feb 22, 2022 11:00 VIVIENNE HERRING MD Feb 22, 2022 13:12
== END 2022-02-22 11:02 | disposition home or self-care (01) ==
LOC: CARD 09:09
PROVIDERS: ATTEND Internal Medicine Cardiovascular Disease
DX: R55 Syncope and collapse (principal); R42 Dizziness and giddiness; I10 Essential (primary) hypertension
CPT/HCPCS: 93660